=== PATIENT | male | born 1970 | race American Indian/Alaskan Native ===

== ENCOUNTER 2016-11-03 23:10 | Emergency (ER) | payer BC ==
[2016-11-03 23:17] VITALS: BP 116/78; PULSE 95; RESP 16; TEMP 98.3; O2SAT 97
[2016-11-04] MEDS ORDERED: Amoxicillin-Clav 875-125 mg Tab PO STA (00:03)
[2016-11-04] MEDS ORDERED: Oxycodone/Acetaminophen 5/325 mg Tab PO STA (00:03)
--- NOTE | 2016-11-04 00:03 | C.PDOC ---
History Of Present Illness 46 yo male come in for evaluation of left 4th finger injury sustained 3 days ago. Pt reports, " was fixing something at home and smashed finger with hammer by accident". Pt reports, increasing pain over tip of Left 4th finger. Otherwise , pt denies any other injury, denies deformity of injured hand, weakness, open wound, sensory or vascular deficits. Ambulate to ED for evaluation, appears in pain. Time Seen by Provider: 11/03/16 23:39 Chief Complaint (Nursing): Finger,Hand,&Wrist History Per: Patient Onset/Duration Of Symptoms: Sudden Onset Current Symptoms Are (Timing): Still Present Past Medical History Reviewed: Historical Data, Nursing Documentation, Vital Signs Vital Signs: Last Vital Signs Temp 98.3 F 11/03/16 23:12 Pulse 95 H 11/03/16 23:12 Resp 16 11/03/16 23:12 BP 116/78 11/03/16 23:12 Pulse Ox 97 11/03/16 23:12 - Medical History PMH: HTN Surgical History: No Surg Hx Family History: States: No Known Family Hx - Social History Hx Alcohol Use: Yes Hx Substance Use: No - Immunization History Hx Tetanus Toxoid Vaccination: Yes Hx Influenza Vaccination: No Hx Pneumococcal Vaccination: No Review Of Systems Except As Marked, All Systems Reviewed And Found Negative. Constitutional: Negative for: Fever, Chills Musculoskeletal: Positive for: Other (Left 4th finger pain) Skin: Positive for: Lesions (Left 4th nail injury) Neurological: Negative for: Weakness, Numbness Physical Exam - Physical Exam Appears: Well, Non-toxic, No Acute Distress Skin: Normal Color, Warm Extremity: Tenderness (Left 4th finger 100%subungual hematoma of nail bed extend proximally to nail fold. No open wound, no obvious deformity.), No Deformity, Swelling (mild edema to left 4th distal phalanx.), Other (FAROM of Left 4th finger, no neurovascular deficits.) Neurological/Psych: Oriented x3, Normal Speech, Normal Motor, Normal Sensation, Normal Reflexes ED Course And Treatment O2 Sat by Pulse Oximetry: 97 - Other Rad Left 4th finger X-Ray: Interpreted by Me, Viewed By Me Interpretation: (+)tuft fx, comminuted Progress Note: On re-evaluation, pt is afebrile, hemodynamiclay stable. Non- toxic. Left 4th subungual hematoma drained w/needle gauge #19, pt tolerate well. Covered with sterile dressing/ and aluminium finger splint applied to finger. FAROM of Left 4th finger, no neurovascular deficits. Pt advised and ref. to F/u with hand specialsit in 2-3 days for re-eval. return if any new changes. - Incision & Drainage Of Abscess Procedure: Drained Pus (subungual hematoma drained w/needle #19 , bloody discharge) Disposition Counseled Patient/Family Regarding: Studies Performed, Diagnosis, Need For Followup, Rx Given - Disposition Referrals: Sriram Granados MD [Provisional Staff] - Disposition: HOME/ ROUTINE Disposition Time: 00:02 Condition: STABLE Additional Instructions: Finger splint for 4 weeks Take antibiotic medication as prescribed and pain medication as need Follow up with Hand specialist in 2-3 days for re-evaluation. Return to ED if any worsening or new changes. Prescriptions: Amoxicillin/Clavulanate [Augmentin 875 MG-125 MG] 1 tab PO BID #14 tab traMADol [Ultram] 50 mg PO TID #7 tab Instructions: Finger Fracture (ED) - Clinical Impression Clinical Impression: Closed fracture of tuft of distal phalanx of finger
[2016-11-04] MEDS ORDERED: Amoxicillin-Clav 875-125 mg Tab PO ONE ×3 (00:08→00:13)
[2016-11-04] MEDS ORDERED: Oxycodone/Acetaminophen 5/325 mg Tab ONE (00:09)
--- NOTE | 2016-11-04 12:29 | RAD ---
PROCEDURE: Left Index finger radiographs. HISTORY: injury COMPARISON: None. TECHNIQUE: AP radiograph of the left hand, as well as spot oblique and lateral images of index finger were obtained. FINDINGS: LEFT INDEX FINGER: Fracture of the distal tuft left 2nd digit. Remainder of the left hand (as seen on the AP view) grossly intact. JOINTS: Normal. SOFT TISSUES: Soft tissue swelling attests to the acuity of the fracture. No visualized/radiopaque foreign body OTHER FINDINGS: None. IMPRESSION: Crush injury/ fracture distal tuft left index finger. Soft tissue swelling attests to the acuity of the fracture.
== END 2016-11-04 00:25 | disposition home or self-care (01) ==
LOC: C.ER 23:10
DX: S62.635A Displaced fracture of distal phalanx of left ring finger, initial encounter for closed fracture (principal); W22.8XXA Striking against or struck by other objects, initial encounter; Y93.E9 Activity, other interior property and clothing maintenance; Y92.009 Unspecified place in unspecified non-institutional (private) residence as the place of occurrence of the external cause

== ENCOUNTER 2018-07-10 11:17 | Inpatient (IN) | payer BC ==
[2018-07-10] MEDS ORDERED: Sodium Chloride 0.9% 500 ML IV ONE (13:17)
[2018-07-10 13:31] LABS: BASO # 0.1 K/uL (0.0-0.2); EOS # 0.1 K/uL (0.0-0.7); EOS % 0.8 % (0.0-4.0); HEMOGLOBIN 15.7 g/dL (12.0-18.0); LYMPH % 23.2 % (20.0-40.0); MEAN CELL VOLUME 93.4 fL (80.0-94.0); MEAN CORPUSCULAR HEMOGLOBIN 32.6 pg (27.0-31.0); MEAN CORPUSCULAR HGB CONC 34.9 g/dL (33.0-37.0); MONO # 0.9 K/uL (0.0-0.8); MONO % 10.2 % (0.0-10.0); NEUT # 5.6 K/uL (1.8-7.0); NEUT % 64.8 % (50.0-75.0); NRBC % 0.1 % (0.0-2.0); RBC 4.82 Mil/uL (4.40-5.90); RED CELL DISTRIBUTION WIDTH 14.4 % (11.5-14.5); WHITE BLOOD COUNT 8.6 K/uL (4.8-10.8)
[2018-07-10 13:50] LABS: ALBUMIN 3.8 g/dL (3.5-5.0); BLOOD UREA NITROGEN 10 mg/dL (9-20); CALCIUM 8.6 mg/dl (8.6-10.4); GFR NON-AFRICAN AMERICAN > 60
[2018-07-10 14:00] LABS: ALT/SGPT 180 U/L (21-72); AST/SGOT 140 U/L (17-59)
[2018-07-10 14:03] LABS: GRANULAR CAST 2 /lpf (0-1); SQUAMOUS EPITHIAL < 1 /hpf (0-5); URINE BACTERIA RARE (<OCC); URINE BILIRUBIN NEGATIVE (NEGATIVE); URINE BLOOD 2+ (NEGATIVE); URINE CLARITY Hazy (Clear); URINE COLOR Amber (YELLOW); URINE GLUCOSE (UA) NORMAL (Normal); URINE HYALINE CAST 0-2 /lpf (0-2); URINE LEUKOCYTE ESTERASE NEG Leu/uL (Negative); URINE PROTEIN 2+ mg/dL (NEGATIVE); URINE UROBILINOGEN NORMAL mg/dL (0.2-1.0)
[2018-07-10 14:21] LABS: LIPASE 2891 U/L (23-300)
--- NOTE | 2018-07-10 14:24 | C.PDOC ---
History Of Present Illness 47 y/o male presents to the ER complaining of upper abdominal pain which has been present since yesterday. Patient states that he cannot sleep because of the pain.Denies having fever, chills, nausea,vomiting, diarrhea, dysuria, and h ematuria. PMD: Time Seen by Provider: 07/10/18 11:48 Chief Complaint (Nursing): Abdominal Pain History Per: Patient History/Exam Limitations: no limitations Onset/Duration Of Symptoms: Days Current Symptoms Are (Timing): Still Present Severity: Moderate Past Medical History Reviewed: Historical Data, Nursing Documentation, Vital Signs Vital Signs: Last Vital Signs Temp 98.5 F 07/10/18 11:37 Pulse 102 H 07/10/18 11:37 Resp 18 07/10/18 11:37 BP 121/83 07/10/18 11:37 Pulse Ox 94 L 07/10/18 11:37 - Medical History PMH: HTN Surgical History: No Surg Hx Family History: States: No Known Family Hx - Social History Hx Alcohol Use: Yes Hx Substance Use: No - Immunization History Hx Tetanus Toxoid Vaccination: Yes Hx Influenza Vaccination: No Hx Pneumococcal Vaccination: No Review Of Systems Except As Marked, All Systems Reviewed And Found Negative. Constitutional: Negative for: Fever, Chills Gastrointestinal: Positive for: Abdominal Pain. Negative for: Nausea, Vomiting, Diarrhea Genitourinary: Negative for: Dysuria, Hematuria Physical Exam - Physical Exam Appears: Non-toxic, No Acute Distress Skin: Normal Color, Warm, Dry Head: Atraumatic, Normacephalic Eye(s): bilateral: Normal Inspection Nose: Normal Oral Mucosa: Moist Neck: Supple Chest: Symmetrical Cardiovascular: Rhythm Regular Respiratory: Normal Breath Sounds, No Rales, No Rhonchi, No Wheezing Gastrointestinal/Abdominal: Soft, Tenderness (periumbilical tenderness), No Guarding, No Rebound Neurological/Psych: Oriented x3, Normal Speech ED Course And Treatment - Laboratory Results Result Diagrams: 07/10/18 13:28 07/10/18 13:28 Lab Results: Total Bilirubin 1.4 mg/dL (0.2-1.3) H 07/10/18 13:28 AST 140 U/L (17-59) H 07/10/18 13:28 ALT 180 U/L (21-72) H 07/10/18 13:28 Alkaline Phosphatase 158 U/L (38-126) H 07/10/18 13:28 Total Protein 7.7 g/dL (6.3-8.3) 07/10/18 13:28 Albumin 3.8 g/dL (3.5-5.0) 07/10/18 13:28 Globulin 3.8 gm/dL (2.2-3.9) 07/10/18 13:28 Albumin/Globulin Ratio 1.0 (1.0-2.1) 07/10/18 13:28 Lipase 2891 U/L (23-300) H 07/10/18 13:28 Urine Color Kate (YELLOW) 07/10/18 13:28 Urine Clarity Hazy (Clear) 07/10/18 13:28 Urine pH 5.0 (5.0-8.0) 07/10/18 13:28 Ur Specific [place] 1.017 (1.003-1.030) 07/10/18 13:28 Urine Protein 2+ mg/dL (NEGATIVE) H 07/10/18 13:28 Urine Glucose (UA) Normal mg/dL (Normal) 07/10/18 13:28 Urine Ketones Negative mg/dL (NEGATIVE) 07/10/18 13:28 Urine Blood 2+ (NEGATIVE) H 07/10/18 13:28 Urine Nitrate Negative (NEGATIVE) 07/10/18 13:28 Urine Bilirubin Negative (NEGATIVE) 07/10/18 13:28 Urine Urobilinogen Normal mg/dL (0.2-1.0) 07/10/18 13:28 Ur Leukocyte Esterase Neg [place]/uL (Negative) 07/10/18 13:28 Urine WBC (Auto) 2 /hpf (0-5) 07/10/18 13:28 Urine RBC (Auto) < 1 /hpf (0-3) 07/10/18 13:28 Ur Squamous Epith Cells < 1 /hpf (0-5) 07/10/18 13:28 Urine Bacteria Rare (<OCC) 07/10/18 13:28 Hyaline Casts 0-2 /lpf (0-2) 07/10/18 13:28 Granular Casts (Auto) 2 /lpf (0-1) 07/10/18 13:28 Lab Interpretation: Abnormal O2 Sat by Pulse Oximetry: 94 (RA) Pulse Ox Interpretation: Normal - CT Scan/US No standard instances Other Rad Studies (CT/US): Read By Radiologist, Radiology Report Reviewed CT/US Interpretation: FINDINGS: There is limited evaluation of the solid organs without the administration of IV contrast. LOWER THORAX: No visible con solidation, pleural effusion, or pneumothorax. LIVER: Hypoattenuation of the liver compatible with hepatic steatosis. Hepatomegaly. GALLBLADDER AND BILE DUCTS: Unremarkable unenhanced appearance. PANCREAS: Prominence of the pancreas consistent with edema. Peripancreatic inflammatory stranding/fluid. SPLEEN: Small fluid abutting the spleen. Otherwise unremarkable unenhanced appearance. ADRENALS: Nodular hypertrophy left adrenal gland. Unremarkable unenhanced appearance of the right adrenal gland. KIDNEYS AND URETERS: No hydronephrosis or obstructing renal calculus. BLADDER: The urinary bladder appears unremarkable. REPRODUCTIVE: The prostate gland measures approximately 3.2 x 4.2 cm. APPENDIX: The appendix appears within normal limits of caliber. No secondary signs of acute appendicitis. BOWEL: The stomach is nondistended. Lack of oral contrast limits evaluation for bowel pathology. The bowel loops appear within normal limits of caliber without evidence of intestinal obstruction. PERITONEUM: Small pelvic free fluid. No definite free air. LYMPH NODES: No bulky lymphadenopathy identified. VASCULATURE: Atherosclerotic calcifications. No aortic aneurysm. BONES: Degenerative changes. OTHER FINDINGS: Fat containing umbilical hernia measures approxi mately 8 mm in diameter. IMPRESSION: Prominence of the pancreas consistent with edema. Peripancreatic inflammatory stranding/fluid. Appearance consistent with acute pancreatitis. Correlate clinically including amylase and lipase levels. Hepatomegaly. Echogenic liver may be seen in setting of hepatic parenchymal disease or fatty infiltration. Nodular hypertrophy of the left adrenal gland. Small pelvic free fluid. Progress Note: Treated with IVF NSS and toradol. On re-evaluation abdomen soft mild diffuse tenderness Reassessment Condition: Improved - Physician Consult Information Physician Contacted: Bj Toribio Outcome Of Conversation: admit Medical Decision Making Medical Decision Making: Plan: --Labs --UA --CT-Abd & Pelv. --IV Fluids Disposition Discussed With : Bj Toribio Doctor Will See Patient In The: Hospital - Disposition Disposition: HOSPITALIZED Disposition Time: 13:00 Condition: STABLE - POA Present On Arrival: None - Clinical Impression Clinical Impression: Abdominal pain, Acute pancreatitis - PA / CAN STERILIZER / Resident Statement MD/DO has reviewed & agrees with the documentation as recorded. - Scribe Statement The provider has reviewed the documentation as recorded by the Lenny Vee Provider Attestation All medical record entries made by the Lenny were at my direction and p ersonally dictated by me. I have reviewed the chart and agree that the record accurately reflects my personal performance of the history, physical exam, medical decision making, and the department course for this patient. I have also personally directed, reviewed, and agree with the discharge instructions and disposition. Decision To Admit - Pt Status Changed To: Hospital Disposition Of: Inpatient - Admit Certification Admit to Inpatient:: After my assessment, the patient will require hospitalization for at least two midnights. This is because of the severity of symptoms shown, intensity of services needed, and/or the medical risk in this patient being treated as an outpatient. - InPatient: Physician Admission Certification:: Acute Pancreatitis - . Bed Request Type: Regular Patient Diagnosis: Abdominal pain, Acute pancreatitis
--- NOTE | 2018-07-10 14:50 | CT ---
PROCEDURE: CT Abdomen and Pelvis without Oral or IV contrast. HISTORY: Pain COMPARISON: None available. TECHNIQUE: Contiguous axial images of the abdomen and pelvis. No oral or IV contrast administered. Coronal and Sagittal reformats generated and reviewed. Radiation dose: Total exam DLP = 447.6 mGy-cm. This CT exam was performed using one or more of the following dose reduction techniques: Automated exposure control, adjustment of the mA and/or kV according to patient size, and/or use of iterative reconstruction technique. FINDINGS: There is limited evaluation of the solid organs without the administration of IV contrast. LOWER THORAX: No visible consolidation, pleural effusion, or pneumothorax. LIVER: Hypoattenuation of the liver compatible with hepatic steatosis. Hepatomegaly. GALLBLADDER AND BILE DUCTS: Unremarkable unenhanced appearance. PANCREAS: Prominence of the pancreas consistent with edema. Peripancreatic inflammatory stranding/fluid. SPLEEN: Small fluid abutting the spleen. Otherwise unremarkable unenhanced appearance. ADRENALS: Nodular hypertrophy left adrenal gland. Unremarkable unenhanced appearance of the right adrenal gland. KIDNEYS AND URETERS: No hydronephrosis or obstructing renal calculus. BLADDER: The urinary bladder appears unremarkable. REPRODUCTIVE: The prostate gland measures approximately 3.2 x 4.2 cm. APPENDIX: The appendix appears within normal limits of caliber. No secondary signs of acute appendicitis. BOWEL: The stomach is nondistended. Lack of oral contrast limits evaluation for bowel pathology. The bowel loops appear within normal limits of caliber without evidence of intestinal obstruction. PERITONEUM: Small pelvic free fluid. No definite free air. LYMPH NODES: No bulky lymphadenopathy identified. VASCULATURE: Atherosclerotic calcifications. No aortic aneurysm. BONES: Degenerative changes. OTHER FINDINGS: Fat containing umbilical hernia measures approximately 8 mm in diameter. IMPRESSION: Prominence of the pancreas consistent with edema. Peripancreatic inflammatory stranding/fluid. Appearance consistent with acute pancreatitis. Correlate clinically including amylase and lipase levels. Hepatomegaly. Echogenic liver may be seen in setting of hepatic parenchymal disease or fatty infiltration. Nodular hypertrophy of the left adrenal gland. Small pelvic free fluid. Additional incidental findings as above.
[2018-07-10 14:57] VITALS: RESP 20
--- NOTE | 2018-07-10 15:01 | CP.PCM.HP ---
History of Present Illness - History of Present Illness History of Present Illness: COMPREHENSIVE HISTORY & PHYSICAL EXAM HPI 48 hours hours ago patient complained of epigastric pain with nauseous feeling patient had 1 vomiting excessively the pain increased in intensity and severity and present to the [facility] for emergency room. The CAT scan of the abdomen showed acute pancreatitis and fatty liver. 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 As per the patient patient was drinking moderately during the weekend PAST HIST. History of hypertension PERSONAL HIST: Smoking. N Alcohol. yes Allergy N Travel_- . FAMILY HIST : ROS : Constitutional: Negative for weight change, chills, night sweats, fatigue and usage of assist device. Eyes: Negative for redness, swelling, itching, discharge, vision changes, blurry vision, double vision, glaucoma, cataracts, Ears: Negative for hearing loss, ringing, , tinnitus, vertigo Nose: Negative for rhinorrhea, stuffiness, sniffing, itching, postnasal drip, discoloration, nasal congestion and epistaxis. Throat: Negative for throat clearing, sore throat, hoarseness, difficulty swallowing and difficulty speaking. Respiratory: Negative for cough, chest tightness, sputum or phlegm, chronic cough, hemoptysis, wheezing, snoring at night, pleuritic chest pain and daytime somnolence. Cardiovascular: Negative for chest pain, palpitations, orthopnea, PND, Edema of legs, leg cramps, angina, claudication, , irregular heartbeat, Neurology: Negative for irritability, muscle weakness, numbness and tingling, seizures, tremors, migraines, slurred speech, syncope, memory loss, mood changes, recurrent headaches Gastrointestinal: Negative for difficulty swallowing, diarrhea, constipation, black stools, rectal bleeding, flatulence, reflux, poor appetite, changes in bowel habits, Genitourinary: Negative for frequent urination, hematuria, discharge, incontinence, urinary retention, frequent UTI, Psychiatric: Negative for depression, anxiety/panic, suicidal tendencies, Musculoskeletal: Negative for swollen joints, back pain, , neck pain, morning stiffness of joints, . Skin: Negative for rash, ulcers, itching, dry skin and pigmented lesions. P/E: Constitutional: Appears stated age and in no apparent distress. Head: Normocephalic. Ears: External ear canals patent without inflammation. Tympanic membranes intact with normal light reflex and landmark. Eyes: Pupils are central, bilaterally equal, symmetrical and reacts to light with normal movements and no icterus or pallor. Nose: External nares are patent. Mucosa is pink Mouth-Throat: Good general appearance and condition. No post-pharyngeal/oropharyngeal erythema and tonsillar hypertrophy. Good dental hygiene. Neck-Lymphatic: Neck is supple with normal ROM, no thyromegaly, lymph nodes or masses. JVD is normal with no carotid bruit. Lungs: Clear to percussion and auscultation with bilateral normal air entry. Cardiovascular: S1 and S2 are normal with no murmurs, gallops and rub. GI Exam: No hepatomegaly. Abdomen is soft néstor tender mostly in the mid and epigastric region. No Organomegaly , masses or hernias are evident and bowel sounds are normal and active. Neurology: Higher function and all cranial nerves intact, with no gross motor or sensory deficit. Superficial and deep reflexes are normal with downwards planters. No cerebellar deficit with normal gait. Musculoskeletal: No tender spots with normal curvature of the spine with no swelling or restricted ROM of the small and large joints. Extremities: Homans sign absent. Intact pulses with no pitting edema, calf tenderness or skin color changes. Skin: No rash, eruptions or abnormal skin pigmentation LAB/RADIOLOGY: ASSESMENT : Acute pancreatitis probably secondary to alcohol consumption Fatty liver secondary to alcohol Hypertension. Plan see orders Present on Admission - Present on Admission Any Indicators Present on Admission: No Past Patient History - Past Social History Smoking Status: Never Smoked - CARDIAC Hx Hypertension: Yes - PSYCHIATRIC Hx Substance Use: No - SURGICAL HISTORY Hx Surgeries: No - ANESTHESIA Hx Anesthesia: No Meds Allergies/Adverse Reactions: Allergies Allergy/AdvReac Type Severity Reaction Status Date / Time No Known Allergies Allergy Verified 11/03/16 23:17 Results - Vital Signs Recent Vital Signs: Last Vital Signs Temp 98.2 F 07/10/18 14:56 Pulse 78 07/10/18 14:56 Resp 20 07/10/18 14:56 BP 132/74 07/10/18 14:56 Pulse Ox 98 07/10/18 14:56 - Labs Result Diagrams: 07/10/18 13:28 07/10/18 13:28 Labs: Laboratory Results - last 24 hr 0107/10/18 07/10/18 13:28 13:28 13:28 WBC 8.6 RBC 4.82 Hgb 15.7 Hct 45.0 MCV 93.4 MCH 32.6 H MCHC 34.9 RDW 14.4 Plt Count 165 MPV 9.0 Neut % (Auto) 64.8 Lymph % (Auto) 23.2 [place] % (Auto) 10.2 H Eos % (Auto) 0.8 Baso % (Auto) 1.0 Neut # (Auto) 5.6 Lymph # (Auto) 2.0 [place] # (Auto) 0.9 H Eos # (Auto) 0.1 Baso # (Auto) 0.1 Sodium 135 Potassium 3.9 Chloride 104 Carbon Dioxide 21 L Anion Gap 14 BUN 10 Creatinine 1.0 Est GFR ( Amer) > 60 Est GFR (Non-Af Amer) > 60 Random Glucose 107 Calcium 8.6 Total Bilirubin 1.4 H AST 140 H ALT 180 H Alkaline Phosphatase 158 H Total Protein 7.7 Albumin 3.8 Globulin 3.8 Albumin/Globulin Ratio 1.0 Lipase 2891 H Urine Color Kate Urine Clarity Hazy Urine pH 5.0 Ur Specific [place] 1.017 Urine Protein 2+ H Urine Glucose (UA) Normal Urine Ketones Negative Urine Blood 2+ H Urine Nitrate Negative Urine Bilirubin Negative Urine Urobilinogen Normal Ur Leukocyte Esterase Neg Urine WBC (Auto) 2 Urine RBC (Auto) < 1 Ur Squamous Epith Cells < 1 Urine Bacteria Rare Hyaline Casts 0-2 Granular Casts (Auto) 2
[2018-07-10] MEDS: Dextrose 5%/0.45% NS 1,000 ML IV SCH ×2 (16:05→23:27)
[2018-07-11 06:52] LABS: BASO % 0.6 % (0.0-2.0); EOS # 0.1 K/uL (0.0-0.7); EOS % 0.9 % (0.0-4.0); HEMOGLOBIN 13.8 g/dL (12.0-18.0); LYMPH % 22.3 % (20.0-40.0); MEAN CELL VOLUME 92.9 fL (80.0-94.0); MEAN CORPUSCULAR HEMOGLOBIN 32.2 pg (27.0-31.0); MEAN CORPUSCULAR HGB CONC 34.7 g/dL (33.0-37.0); MEAN PLATELET VOLUME 8.8 fL (7.2-11.7); MONO # 0.9 K/uL (0.0-0.8); MONO % 10.3 % (0.0-10.0); NEUT # 5.8 K/uL (1.8-7.0); NEUT % 65.9 % (50.0-75.0); RBC 4.29 Mil/uL (4.40-5.90); RED CELL DISTRIBUTION WIDTH 14.5 % (11.5-14.5); WHITE BLOOD COUNT 8.8 K/uL (4.8-10.8)
[2018-07-11 07:16] LABS: ALBUMIN 3.2 g/dL (3.5-5.0); ALT/SGPT 110 U/L (21-72); AMYLASE 89 U/L (30-110); AST/SGOT 67 U/L (17-59); BLOOD UREA NITROGEN 6 mg/dL (9-20); CALCIUM 8.2 mg/dl (8.6-10.4); GFR NON-AFRICAN AMERICAN > 60; LIPASE 1027 U/L (23-300)
[2018-07-11] MEDS: Enoxaparin 40 mg Syringe SC SCH (09:29)
[2018-07-11] MEDS: Dextrose 5%/0.45% NS 1,000 ML IV SCH ×2 (09:29→17:51)
--- NOTE | 2018-07-11 14:19 | CP.PCM.PN ---
Subjective - Date & Time of Evaluation Date of Evaluation: 07/11/18 Time of Evaluation: 14:18 - Subjective Subjective: CHIEF COMPLAINTS TODAY : Patient has less abdominal pain no vomiting ROS. HEENT : N. Resp : No cough, wheezing ,pleuritic CP ,or hemoptysis Cardio : No anginal CP, PND, orthopnea, palpitation GI : No n/v ,diarrhea or GI bleeding . RAILWAY SIGNAL OPERATOR : No headache, vertigo, focal deficit. Musculoskel : No joint swelling , Derm : No rash Psych : Normal affect. Ext : No swelling ,calf pain PE. Pt. is alert awake in no distress. V.S As noted in the chart Head ,ear nose,throat and eyes : Normal. Neck : Supple with normal carotids. Lungs: Clear air entry. Heart : S1 & S2 normal with S4. No murmur. Abd : Soft tender with normal bowel sounds. Neuro : Moves all ext. with no localized deficit. Ext : No edema with intact pulses.Non tender calves Derm : No rashes or decubitus ulcer. LABS/RADIOLOGY: Liver function tests and lipase is trending down ASSESSMENT/PLAN : Continue nothing by mouth and IV fluids Objective - Vital Signs/Intake and Output Vital Signs (last 24 hours): Temp Pulse Resp BP Pulse Ox 98.8 F 75 20 125/79 98 07/11/18 07:18 07/11/18 07:18 07/11/18 07:18 07/11/18 07:18 07/11/18 07:18 Intake and Output: 07/11/18 07/11/18 11:59 23:59 Intake Total 960 Balance 960 - Medications Medications: Current Medications Enoxaparin Sodium (Lovenox) 40 mg SC DAILY [facility] Last Admin: 07/11/18 09:29 Dose: 40 mg Dextrose/Sodium Chloride (Dextrose 5%/0.45% Ns 1000 Ml) 1,000 mls @ 120 mls/hr IV .Q8H20M [facility] Last Admin: 07/11/18 09:29 Dose: 120 mls/hr Influenza Virus Vaccine (Flucelvax Quad [id number] Syr) 60 mcg IM .ONCE ONE Stop: 07/13/18 10:01 Ketorolac Tromethamine (Toradol) 30 mg IVP Q6 PRN PRN Reason: Pain, Mild (1-3) Last Admin: 07/11/18 03:16 Dose: 30 mg Pneumococcal Polyvalent Vaccine (Pneumovax 23 Vaccine) 0.5 ml IM .ONCE ONE Stop: 07/13/18 08:01 - Labs Labs: 07/11/18 06:32 07/11/18 06:32
[2018-07-12] MEDS: Dextrose 5%/0.45% NS 1,000 ML IV SCH ×4 (01:30→20:27)
[2018-07-12 06:18] LABS: BASO % 0.4 % (0.0-2.0); EOS # 0.1 K/uL (0.0-0.7); EOS % 1.4 % (0.0-4.0); HEMOGLOBIN 13.6 g/dL (12.0-18.0); LYMPH # 1.9 K/uL (1.0-4.3); LYMPH % 22.4 % (20.0-40.0); MEAN CELL VOLUME 93.8 fL (80.0-94.0); MEAN CORPUSCULAR HEMOGLOBIN 31.6 pg (27.0-31.0); MEAN CORPUSCULAR HGB CONC 33.7 g/dL (33.0-37.0); MEAN PLATELET VOLUME 8.8 fL (7.2-11.7); MONO # 0.9 K/uL (0.0-0.8); MONO % 10.5 % (0.0-10.0); NEUT # 5.6 K/uL (1.8-7.0); NEUT % 65.3 % (50.0-75.0); RBC 4.29 Mil/uL (4.40-5.90); RED CELL DISTRIBUTION WIDTH 14.6 % (11.5-14.5); WHITE BLOOD COUNT 8.6 K/uL (4.8-10.8)
[2018-07-12 06:43] LABS: ALB/GLOB RATIO 1.1 (1.0-2.1); ALBUMIN 3.3 g/dL (3.5-5.0); ALT/SGPT 77 U/L (21-72); AMYLASE 78 U/L (30-110); AST/SGOT 39 U/L (17-59); BLOOD UREA NITROGEN 5 mg/dL (9-20); CALCIUM 7.9 mg/dl (8.6-10.4); GFR NON-AFRICAN AMERICAN > 60; LIPASE 818 U/L (23-300)
[2018-07-12] MEDS: Enoxaparin 40 mg Syringe SC SCH (09:12)
--- NOTE | 2018-07-12 11:13 | CP.PCM.PN ---
Subjective - Date & Time of Evaluation Date of Evaluation: 07/12/18 Time of Evaluation: 11:13 - Subjective Subjective: CHIEF COMPLAINTS TODAY : Patient has less abdominal pain no vomiting ROS. HEENT : N. Resp : No cough, wheezing ,pleuritic CP ,or hemoptysis Cardio : No anginal CP, PND, orthopnea, palpitation GI : No n/v ,diarrhea or GI bleeding . CORPORATE LAW ASSISTANT : No headache, vertigo, focal deficit. Musculoskel : No joint swelling , Derm : No rash Psych : Normal affect. Ext : No swelling ,calf pain PE. Pt. is alert awake in no distress. V.S As noted in the chart Head ,ear nose,throat and eyes : Normal. Neck : Supple with normal carotids. Lungs: Clear air entry. Heart : S1 & S2 normal with S4. No murmur. Abd : Soft tender with normal bowel sounds. Neuro : Moves all ext. with no localized deficit. Ext : No edema with intact pulses.Non tender calves Derm : No rashes or decubitus ulcer. LABS/RADIOLOGY: Liver function tests and lipase is trending down ASSESSMENT/PLAN : serum lipase is now 800, we will start clear liquids Objective - Vital Signs/Intake and Output Vital Signs (last 24 hours): Temp Pulse Resp BP Pulse Ox 97.7 F 66 20 151/76 H 97 07/12/18 07:23 07/12/18 07:23 07/12/18 07:23 07/12/18 07:23 07/12/18 07:23 Intake and Output: 07/11/18 07/12/18 23:59 11:59 Intake Total 2270 960 Balance 2270 960 - Medications Medications: Current Medications Enoxaparin Sodium (Lovenox) 40 mg SC DAILY [facility] Last Admin: 07/12/18 09:12 Dose: 40 mg Dextrose/Sodium Chloride (Dextrose 5%/0.45% Ns 1000 Ml) 1,000 mls @ 120 mls/hr IV .Q8H20M [facility] Last Admin: 07/12/18 10:26 Dose: Not Given Influenza Virus Vaccine (Flucelvax Quad [id number] Syr) 60 mcg IM .ONCE ONE Stop: 07/13/18 10:01 Ketorolac Tromethamine (Toradol) 30 mg IVP Q6 PRN PRN Reason: Pain, Mild (1-3) Last Admin: 07/12/18 09:17 Dose: 30 mg Pneumococcal Polyvalent Vaccine (Pneumovax 23 Vaccine) 0.5 ml IM .ONCE ONE Stop: 07/13/18 08:01 - Labs Labs: 07/12/18 06:13 07/12/18 06:13
[2018-07-13] MEDS: Dextrose 5%/0.45% NS 1,000 ML IV SCH ×4 (02:34→23:04)
[2018-07-13 07:18] LABS: BASO % 0.4 % (0.0-2.0); EOS # 0.1 K/uL (0.0-0.7); EOS % 1.1 % (0.0-4.0); HEMOGLOBIN 13.4 g/dL (12.0-18.0); LYMPH # 1.8 K/uL (1.0-4.3); MEAN CELL VOLUME 94.7 fL (80.0-94.0); MEAN CORPUSCULAR HEMOGLOBIN 31.7 pg (27.0-31.0); MEAN CORPUSCULAR HGB CONC 33.4 g/dL (33.0-37.0); MEAN PLATELET VOLUME 8.7 fL (7.2-11.7); MONO % 11.8 % (0.0-10.0); NEUT # 5.3 K/uL (1.8-7.0); NEUT % 64.7 % (50.0-75.0); NRBC % 0.1 % (0.0-2.0); RBC 4.25 Mil/uL (4.40-5.90); RED CELL DISTRIBUTION WIDTH 14.8 % (11.5-14.5); WHITE BLOOD COUNT 8.1 K/uL (4.8-10.8)
[2018-07-13 07:43] LABS: ALB/GLOB RATIO 1.1 (1.0-2.1); ALBUMIN 3.4 g/dL (3.5-5.0); ALT/SGPT 63 U/L (21-72); AMYLASE 101 U/L (30-110); AST/SGOT 42 U/L (17-59); BLOOD UREA NITROGEN 5 mg/dL (9-20); CALCIUM 8.5 mg/dl (8.6-10.4); GFR NON-AFRICAN AMERICAN > 60; LIPASE 941 U/L (23-300)
[2018-07-13] MEDS ORDERED: Pneumococcal 23-Valent Vaccine IM ONE (08:00)
[2018-07-13] MEDS ORDERED: Influenza Vaccine 60 mcg/0.5 mL SYR (4YR UP) IM ONE (10:00)
[2018-07-13] MEDS: Enoxaparin 40 mg Syringe SC SCH (10:18)
--- NOTE | 2018-07-13 13:03 | CP.PCM.PN ---
Subjective - Date & Time of Evaluation Date of Evaluation: 07/13/18 Time of Evaluation: 13:02 - Subjective Subjective: CHIEF COMPLAINTS TODAY : Patient has less abdominal pain no vomiting ROS. HEENT : N. Resp : No cough, wheezing ,pleuritic CP ,or hemoptysis Cardio : No anginal CP, PND, orthopnea, palpitation GI : No n/v ,diarrhea or GI bleeding . V BELT COVERER : No headache, vertigo, focal deficit. Musculoskel : No joint swelling , Derm : No rash Psych : Normal affect. Ext : No swelling ,calf pain PE. Pt. is alert awake in no distress. V.S As noted in the chart Head ,ear nose,throat and eyes : Normal. Neck : Supple with normal carotids. Lungs: Clear air entry. Heart : S1 & S2 normal with S4. No murmur. Abd : Soft tender with normal bowel sounds. Neuro : Moves all ext. with no localized deficit. Ext : No edema with intact pulses.Non tender calves Derm : No rashes or decubitus ulcer. LABS/RADIOLOGY: Liver function tests and lipase is trending down ASSESSMENT/PLAN : After resuming clear liquids, the patient's lipase level has gone up to 914. We will continue clear liquids and repeat another level in the morning and plan for the Objective - Vital Signs/Intake and Output Vital Signs (last 24 hours): Temp Pulse Resp BP Pulse Ox 98.7 F 76 20 118/75 96 07/13/18 08:31 07/13/18 08:31 07/13/18 08:31 07/13/18 08:31 07/13/18 08:31 - Medications Medications: Current Medications Enoxaparin Sodium (Lovenox) 40 mg SC DAILY [facility] Last Admin: 07/13/18 10:18 Dose: 40 mg Dextrose/Sodium Chloride (Dextrose 5%/0.45% Ns 1000 Ml) 1,000 mls @ 120 mls/hr IV .Q8H20M [facility] Last Admin: 07/13/18 05:34 Dose: 120 mls/hr - Labs Labs: 07/13/18 07:09 07/13/18 07:09
[2018-07-14] MEDS: Dextrose 5%/0.45% NS 1,000 ML IV SCH ×2 (06:27→10:14)
[2018-07-14 07:31] LABS: BASO % 0.5 % (0.0-2.0); EOS # 0.1 K/uL (0.0-0.7); EOS % 1.3 % (0.0-4.0); HEMOGLOBIN 13.4 g/dL (12.0-18.0); LYMPH # 1.9 K/uL (1.0-4.3); MEAN CELL VOLUME 94.6 fL (80.0-94.0); MEAN CORPUSCULAR HEMOGLOBIN 32.2 pg (27.0-31.0); MEAN PLATELET VOLUME 8.5 fL (7.2-11.7); MONO % 13.5 % (0.0-10.0); NEUT # 4.3 K/uL (1.8-7.0); NEUT % 58.7 % (50.0-75.0); RBC 4.16 Mil/uL (4.40-5.90); RED CELL DISTRIBUTION WIDTH 14.6 % (11.5-14.5); WHITE BLOOD COUNT 7.4 K/uL (4.8-10.8)
[2018-07-14 08:02] LABS: ALBUMIN 3.4 g/dL (3.5-5.0); ALT/SGPT 54 U/L (21-72); AMYLASE 97 U/L (30-110); AST/SGOT 38 U/L (17-59); BLOOD UREA NITROGEN 4 mg/dL (9-20); CALCIUM 8.6 mg/dl (8.6-10.4); GFR NON-AFRICAN AMERICAN > 60; LIPASE 801 U/L (23-300)
[2018-07-14] MEDS: Enoxaparin 40 mg Syringe SC SCH (10:13)
--- NOTE | 2018-07-14 15:59 | CP.PCM.PN ---
Subjective - Date & Time of Evaluation Date of Evaluation: 07/14/18 Time of Evaluation: 15:58 - Subjective Subjective: CHIEF COMPLAINTS TODAY : Patient has less abdominal pain no vomiting ROS. HEENT : N. Resp : No cough, wheezing ,pleuritic CP ,or hemoptysis Cardio : No anginal CP, PND, orthopnea, palpitation GI : No n/v ,diarrhea or GI bleeding . FOUNDER : No headache, vertigo, focal deficit. Musculoskel : No joint swelling , Derm : No rash Psych : Normal affect. Ext : No swelling ,calf pain PE. Pt. is alert awake in no distress. V.S As noted in the chart Head ,ear nose,throat and eyes : Normal. Neck : Supple with normal carotids. Lungs: Clear air entry. Heart : S1 & S2 normal with S4. No murmur. Abd : Soft tender with normal bowel sounds. Neuro : Moves all ext. with no localized deficit. Ext : No edema with intact pulses.Non tender calves Derm : No rashes or decubitus ulcer. LABS/RADIOLOGY: Liver function tests and lipase is trending down ASSESSMENT/PLAN : After resuming clear liquids, the patient's lipase level has gone up to 810 Advance diet Objective - Vital Signs/Intake and Output Vital Signs (last 24 hours): Temp Pulse Resp BP Pulse Ox 98.2 F 72 20 117/76 97 07/14/18 15:00 07/14/18 15:00 07/14/18 15:00 07/14/18 15:00 07/14/18 15:00 Intake and Output: 07/14/18 07/14/18 11:59 23:59 Intake Total 1060 1200 Balance 1060 1200 - Medications Medications: Current Medications Enoxaparin Sodium (Lovenox) 40 mg SC DAILY [facility] Last Admin: 07/14/18 10:13 Dose: 40 mg Dextrose/Sodium Chloride (Dextrose 5%/0.45% Ns 1000 Ml) 1,000 mls @ 120 mls/hr IV .Q8H20M [facility] Last Admin: 07/14/18 10:14 Dose: 120 mls/hr - Labs Labs: 07/14/18 07:17 07/14/18 06:35
[2018-07-15] MEDS: Dextrose 5%/0.45% NS 1,000 ML IV SCH ×3 (00:08→10:12)
[2018-07-15 07:13] LABS: BASO % 0.2 % (0.0-2.0); EOS # 0.1 K/uL (0.0-0.7); EOS % 1.5 % (0.0-4.0); HEMOGLOBIN 13.4 g/dL (12.0-18.0); LYMPH # 1.9 K/uL (1.0-4.3); MEAN CELL VOLUME 94.4 fL (80.0-94.0); MEAN CORPUSCULAR HGB CONC 33.9 g/dL (33.0-37.0); MEAN PLATELET VOLUME 7.7 fL (7.2-11.7); MONO # 0.9 K/uL (0.0-0.8); MONO % 14.6 % (0.0-10.0); NEUT % 51.7 % (50.0-75.0); NRBC % 0.2 % (0.0-2.0); RBC 4.18 Mil/uL (4.40-5.90); RED CELL DISTRIBUTION WIDTH 14.6 % (11.5-14.5); WHITE BLOOD COUNT 5.9 K/uL (4.8-10.8)
[2018-07-15 07:35] LABS: ALB/GLOB RATIO 1.1 (1.0-2.1); ALBUMIN 3.5 g/dL (3.5-5.0); ALT/SGPT 57 U/L (21-72); AMYLASE 99 U/L (30-110); AST/SGOT 35 U/L (17-59); BLOOD UREA NITROGEN 8 mg/dL (9-20); CALCIUM 8.8 mg/dl (8.6-10.4); GFR NON-AFRICAN AMERICAN > 60; LIPASE 761 U/L (23-300)
[2018-07-15 07:39] VITALS: BP 134/82; PULSE 60; TEMP 99.1; O2SAT 96
[2018-07-15] MEDS: Enoxaparin 40 mg Syringe SC SCH (10:07)
--- NOTE | 2018-07-15 11:38 | CP.PCM.DIS ---
Provider - Provider Date of Admission: 07/10/18 15:00 Attending physician: Bj Toribio MD Time Spent in preparation of Discharge (in minutes): 30 Hospital Course - Lab Results Lab Results: Most Recent Lab Values WBC 5.9 K/uL (4.8-10.8) 07/15/18 07:01 RBC 4.18 Mil/uL (4.40-5.90) L 07/15/18 07:01 Hgb 13.4 g/dL (12.0-18.0) 07/15/18 07:01 Hct 39.4 % (35.0-51.0) 07/15/18 07:01 MCV 94.4 fL (80.0-94.0) H 07/15/18 07:01 MCH 32.0 pg (27.0-31.0) H 07/15/18 07:01 MCHC 33.9 g/dL (33.0-37.0) 07/15/18 07:01 RDW 14.6 % (11.5-14.5) H 07/15/18 07:01 Plt Count 245 K/uL (130-400) 07/15/18 07:01 MPV 7.7 fL (7.2-11.7) 07/15/18 07:01 Neut % (Auto) 51.7 % (50.0-75.0) 07/15/18 07:01 Lymph % (Auto) 32.0 % (20.0-40.0) 07/15/18 07:01 [place] % (Auto) 14.6 % (0.0-10.0) H 07/15/18 07:01 Eos % (Auto) 1.5 % (0.0-4.0) 07/15/18 07:01 Baso % (Auto) 0.2 % (0.0-2.0) 07/15/18 07:01 Neut # (Auto) 3.0 K/uL (1.8-7.0) 07/15/18 07:01 Lymph # (Auto) 1.9 K/uL (1.0-4.3) 07/15/18 07:01 [place] # (Auto) 0.9 K/uL (0.0-0.8) H 07/15/18 07:01 Eos # (Auto) 0.1 K/uL (0.0-0.7) 07/15/18 07:01 Baso # (Auto) 0.0 K/uL (0.0-0.2) 07/15/18 07:01 Sodium 135 mmol/L (132-148) 07/15/18 07:01 Potassium 3.9 mmol/L (3.6-5.2) 07/15/18 07:01 Chloride 105 mmol/L (98-107) 07/15/18 07:01 Carbon Dioxide 26 mmol/L (22-30) 07/15/18 07:01 Anion Gap 8 (10-20) L 07/15/18 07:01 BUN 8 mg/dL (9-20) L 07/15/18 07:01 Creatinine 1.0 mg/dL (0.8-1.5) 07/15/18 07:01 Est GFR ( Amer) > 60 07/15/18 07:01 Est GFR (Non-Af Amer) > 60 07/15/18 07:01 Random Glucose 106 mg/dL (75-110) 07/15/18 07:01 Calcium 8.8 mg/dl (8.6-10.4) 07/15/18 07:01 Total Bilirubin 0.7 mg/dL (0.2-1.3) 07/15/18 07:01 AST 35 U/L (17-59) 07/15/18 07:01 ALT 57 U/L (21-72) 07/15/18 07:01 Alkaline Phosphatase 108 U/L (38-126) 07/15/18 07:01 Total Protein 6.8 g/dL (6.3-8.3) 07/15/18 07:01 Albumin 3.5 g/dL (3.5-5.0) 07/15/18 07:01 Globulin 3.3 gm/dL (2.2-3.9) 07/15/18 07:01 Albumin/Globulin Ratio 1.1 (1.0-2.1) 07/15/18 07:01 Amylase 99 U/L (30-110) 07/15/18 07:01 Lipase 761 U/L (23-300) H 07/15/18 07:01 Urine Color Kate (YELLOW) 07/10/18 13:28 Urine Clarity Hazy (Clear) 07/10/18 13:28 Urine pH 5.0 (5.0-8.0) 07/10/18 13:28 Ur Specific [place] 1.017 (1.003-1.030) 07/10/18 13:28 Urine Protein 2+ mg/dL (NEGATIVE) H 07/10/18 13:28 Urine Glucose (UA) Normal mg/dL (Normal) 07/10/18 13:28 Urine Ketones Negative mg/dL (NEGATIVE) 07/10/18 13:28 Urine Blood 2+ (NEGATIVE) H 07/10/18 13:28 Urine Nitrate Negative (NEGATIVE) 07/10/18 13:28 Urine Bilirubin Negative (NEGATIVE) 07/10/18 13:28 Urine Urobilinogen Normal mg/dL (0.2-1.0) 07/10/18 13:28 Ur Leukocyte Esterase Neg Lucero/uL (Negative) 07/10/18 13:28 Urine WBC (Auto) 2 /hpf (0-5) 07/10/18 13:28 Urine RBC (Auto) < 1 /hpf (0-3) 07/10/18 13:28 Ur Squamous Epith Cells < 1 /hpf (0-5) 07/10/18 13:28 Urine Bacteria Rare (<OCC) 07/10/18 13:28 Hyaline Casts 0-2 /lpf (0-2) 07/10/18 13:28 Granular Casts (Auto) 2 /lpf (0-1) 07/10/18 13:28 - Hospital Course Hospital Course: 48 hours hours ago patient complained of epigastric pain with nauseous feeling patient had 1 vomiting excessively the pain increased in intensity and severity and present to the [facility] emergency room. The CAT scan of the abdomen showed acute pancreatitis and fatty liver. 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 As per the patient patient was drinking moderately during the weekend Patient was admitted on the floor. Patient had nothing by mouth IV fluids and pain management with tramadol. CT of the abdomen showed acute pancreatitis. Patient improved on above therapy and the lipase was down trending to the level of 761 prior to discharge. During the discharge day patient had no further abdominal pain nausea or vomiting and patient was eating regular diet for the last 24 hours. Patient is now being discharged patient was strongly advised to stop any further alcohol and will be followed in outpatient.percutaneous Discharge Plan - Follow Up Plan Condition: STABLE Disposition: HOME/ ROUTINE Additional Instructions: FOLLOW UP WITH DR TORIBIO IN HIS OFFICE ------CALL FOR APPOINTMENT ACTIVITY TOLERATED CALL DR TORIBIO IF SYMPTOM RETURN OR WORSENING Referrals: Bj Toribio MD [Staff Provider] -
--- NOTE | 2018-07-15 12:10 | CP.PCM.PN ---
Subjective - Date & Time of Evaluation Date of Evaluation: 07/15/18 Time of Evaluation: 12:10 - Subjective Subjective: PATIENT SEEN AND EXAMINED AT THE BEDSIDE Objective - Vital Signs/Intake and Output Vital Signs (last 24 hours): Temp Pulse Resp BP Pulse Ox 99.1 F 60 20 134/82 96 07/15/18 07:36 07/15/18 07:36 07/15/18 07:36 07/15/18 07:36 07/15/18 07:36 Intake and Output: 07/15/18 07/15/18 06:59 18:59 Intake Total 1260 1210 Balance 1260 1210 - Medications Medications: Current Medications Enoxaparin Sodium (Lovenox) 40 mg SC DAILY [facility] Last Admin: 07/15/18 10:07 Dose: 40 mg Dextrose/Sodium Chloride (Dextrose 5%/0.45% Ns 1000 Ml) 1,000 mls @ 120 mls/hr IV .Q8H20M [facility] Last Admin: 07/15/18 10:12 Dose: 120 mls/hr - Labs Labs: 07/15/18 07:01 07/15/18 07:01 Assessment and Plan - Assessment and Plan (Free Text) Assessment: FOLLOW UP WITH DR FALCON IN HIS OFFICE ------CALL FOR APPOINTMENT ACTIVITY TOLERATED CALL DR FALCON IF SYMPTOM RETURN OR WORSENING
== END 2018-07-15 14:00 | disposition home or self-care (01) | DRG 440 ==
LOC: C.ER 11:17 → C.9E 15:00 → C.3T 16:54 → C.6T 07-15 13:14
PROVIDERS: ADMIT Internal Medicine Cardiovascular Disease; ATTEND Internal Medicine Cardiovascular Disease
DX: K85.20 Alcohol induced acute pancreatitis without necrosis or infection (principal); K70.0 Alcoholic fatty liver; F10.10 Alcohol abuse, uncomplicated; I10 Essential (primary) hypertension